=== PATIENT | male | born 1950 | race Caucasian/White ===

== ENCOUNTER → 2016-09-07 | Outpatient (CLI) | payer OTHER | END | disposition home or self-care (01) | LOC: CDC 14:29 | DX: Z01.810 Encounter for preprocedural cardiovascular examination (principal); G56.01 Carpal tunnel syndrome, right upper limb; G56.81 Other specified mononeuropathies of right upper limb; G56.21 Lesion of ulnar nerve, right upper limb | CPT/HCPCS: 93000 ==